=== PATIENT | female | born 1985 | race Caucasian/White ===

== ENCOUNTER → 2016-10-31 | Outpatient (CLI) | payer OTHER ==
[~2016-10-31] MED LIST: MTR600X PO; PRENTAB26 PO
== END | disposition home or self-care (01) ==
LOC: C.LABBFT 09:58
PROVIDERS: ATTEND Nurse Practitioner
DX: B35.1 Tinea unguium (principal)

== ENCOUNTER → 2017-06-08 | Outpatient (CLI) | payer OTHER ==
[2017-06-08 12:23] LABS: BASO % 0.2 %; BASO ABS # 0.01 K/uL (0-0.2); COMPLETE YES; EOS % 1.5 %; HEMATOCRIT 38.8 % (37-47); IG% 0.2 %; LYMPH % 33.8 %; LYMPH ABS # 2.01 K/uL (1.2-3.4); MEAN CELL VOLUME 87.4 fL (80-100); MEAN CORPUSCULAR HEMOGLOBIN 29.3 pg (25-34); MEAN CORPUSCULAR HGB CONC 33.5 g/dl (32-36); MEAN PLATELET VOLUME 10.4 fL (7.4-10.4); MONO % 5.2 %; NEUT % 59.1 %; PLATELET COUNT 265 K/uL (130-400); RED BLOOD COUNT 4.44 M/uL (4.2-5.4); WHITE BLOOD COUNT 5.95 K/uL (4.8-10.8)
[2017-06-08 12:41] LABS: ALT/SGPT 21 U/L (12-78); AST/SGOT 12 U/L (15-37); BLOOD UREA NITROGEN 11 mg/dl (7-18); BUN/CREATININE RATIO 14.7 (10-20); CARBON DIOXIDE 27 mmol/L (21-32); CHLORIDE 106 mmol/L (98-107); CREATININE 0.75 mg/dl (0.60-1.20); GLUCOSE 85 mg/dl (70-99); POTASSIUM 4.1 mmol/L (3.5-5.1); SODIUM 140 mmol/L (136-145)
[2017-06-08 12:44] LABS: ALB/GLOB RATIO 1.3 (0.9-2); ALKALINE PHOSPHATASE 56 U/L (45-117)
== END | disposition home or self-care (01) ==
LOC: C.LABBFT 10:05
PROVIDERS: ATTEND Nurse Practitioner
DX: B35.1 Tinea unguium (principal); R10.814 Left lower quadrant abdominal tenderness